=== PATIENT | female | born 1980 | race Caucasian/White ===

== ENCOUNTER 2023-03-05 10:16 | Emergency (ER) | payer OTHER, SELFPAY ==
[2023-03-05 10:36] VITALS: BP 178/104; PULSE 98; RESP 16; TEMP 36.6; O2SAT 98; BMI 37.0
[2023-03-05 11:15] LABS: Basophils Percent Auto 0.6 % (0.2-2.0); Eosinophils Percent Auto 0.1 % (0.9-7.0); Hematocrit 41.3 % (36.0-48.0); Hemoglobin 13.6 g/dL (12.0-16.0); Immature Granulocytes Abs Auto 0.01 10^3/uL (0.00-0.03); Immature Granulocytes Pct Auto 0.1 % (0.0-0.5); Lymphocytes Absolute Auto 2.4 10^3/uL (1.2-3.8); Lymphocytes Percent Auto 35.3 % (20.5-60.0); Mean Corpuscular HGB Conc 32.9 g/dL (29.9-35.2); Mean Corpuscular Hemoglobin 29.6 pg (26.7-34.0); Monocytes Absolute Auto 0.6 10^3/uL (0.3-0.8); Monocytes Percent Auto 9.1 % (1.7-12.0); Neutrophils Absolute Auto 3.7 10^3/uL (1.4-6.5); Neutrophils Percent Auto 54.8 % (43.0-75.0); Platelet Count 202 10^3/uL (150-450); Red Blood Count 4.59 10^6/uL (4.20-5.40); Red Cell Distribution Width 13.6 % (11.0-15.0); White Blood Count 6.7 10^3/uL (4.0-11.0)
[2023-03-05 11:20] VITALS: BP 160/102
[2023-03-05 11:55] LABS: HCG Qualitative NEGATIVE (NEGATIVE)
[2023-03-05 12:11] LABS: Alanine Aminotransferase 80 U/L (14-59); Albumin Globulin Ratio 1.2; Albumin Level 4.2 g/dL (3.4-5.0); Alkaline Phosphatase 68 U/L (46-116); Anion Gap 12.6; Aspartate Amino Transferase 49 U/L (15-37); BUN Creatinine Ratio 22.5; Bilirubin Total 0.6 mg/dL (0.2-1.0); Calcium 9.1 mg/dL (8.5-10.1); Carbon Dioxide 27.3 mmol/L (21.0-32.0); Chloride 106 mmol/L (98-107); Estimated GFR (African America >60 (>=60); Estimated GFR (Non-African Ame >60 (>=60); Globulin 3.6 g/dL; Glucose 93 mg/dL (74-106); Potassium 3.9 mmol/L (3.5-5.1); Sodium 142 mmol/L (136-145); Total Protein 7.8 g/dL (6.4-8.2); Troponin I High Sensitivity 4.1 pg/mL (4.0-51.3)
--- NOTE | 2023-03-05 12:13 | ED_ITS ---
HPI - Anxiety General Chief Complaint: Anxiety Stated Complaint: HIGH BLOOD PRESSURE Time Seen by Provider: 03/05/23 10:45 Source: patient Mode of arrival: walk-in History of Present Illness HPI narrative: Patient presenting to us after she was sent to us by the primary care doctor for her blood pressure that was found to be elevated, the patient had no complaints that was active as she had a history of anxiety recently although she does not take any medication but she mentioned that her daughter has been anxious and she has been anxious because of that She denies any chest pain headache although she does get headache very frequent over the week No blurry vision or double vision but she mentioned seeing floaters sometimes although she does not have any complaint at the moment The patient has not been diagnosed with hypertension before except when she was 9 years ago Related Data Previous Rx's Medication Instructions Recorded amlodipine 5 mg tablet 5 mg PO DAILY #14 tabs 03/05/23 Allergies Allergy/AdvReac Type Severity Reaction Status Date / Time Penicillins Allergy Severe Verified 03/05/23 10:35 Review of Systems ROS Status of ROS 10 or more systems reviewed and unremarkable except as noted in history and below Exam Narrative Exam Narrative: Nurses notes and vital signs reviewed and patient is not hypoxic. General: Well-appearing and in no apparent distress. Skin: Warm, dry, no pallor noted. No rash. Head: Normocephalic, atraumatic. Neck: Supple, non-tender. Eye: Pupils are equal, round and EOMI. No scleral icterus. Ears, Nose, Mouth, and Throat: TM are clear, no nasal mucosal hypertrophy. Oral mucosa is moist, no posterior oropharynx erythema, uvula is mid-line Cardiovascular: Regular Rate and Rhythm without murmur, gallop or rub. Respiratory: No accessory muscle use or respiratory distress. Lungs are clear to auscultation, no wheezing, rales or rhonchi Chest Wall: no tenderness Back: No midline thoracic or lumbar vertebral tenderness. No CVA tenderness Musculoskeletal: normal ROM, no calf or popliteal tenderness, no lower extremity edema/swelling GI: Abdomen is soft, non-distended. Normal bowel sounds. No masses appreciated. No tenderness to palpation. No rebound, guarding, or rigidity noted. Neurological: A&O x4. No cranial nerve dysfunction observed. No truncal milton randa. Moves all extremities. Sensation intact. Psychiatric: Cooperative and interactive. Normal mood and affect. Constitutional Vital Signs, click to edit/add: Last Vital Signs Temp 97.8 F 03/05/23 10:36 Pulse 98 H 03/05/23 10:36 Resp 16 03/05/23 10:36 BP 160/102 H 03/05/23 11:20 Pulse Ox 98 03/05/23 10:36 O2 Del Method Room Air 03/05/23 10:45 Course Vital Signs Vital signs: Vital Signs Temperature 97.8 F 03/05/23 10:36 Pulse Rate 98 H 03/05/23 10:36 Respiratory Rate 16 03/05/23 10:36 Blood Pressure 178/104 H 03/05/23 10:36 Pulse Oximetry 98 03/05/23 10:36 Oxygen Delivery Method Room Air 03/05/23 10:36 Temperature 97.8 F 03/05/23 10:36 Pulse Rate 98 H 03/05/23 10:36 Respiratory Rate 16 03/05/23 10:36 Blood Pressure 160/102 H 03/05/23 11:20 Pulse Oximetry 98 03/05/23 10:36 Oxygen Delivery Method Room Air 03/05/23 10:45 MDM - Anxiety MDM Narrative Medical decision making narrative: The patient CBC and chemistry showed no acute significant pathology she did have some liver enzyme elevation that she mentioned that was a chronic The patient was started amlodipine 5 mg daily instructed to follow-up with her doctor within a week she also was already started on Vistaril by her primary care doctor The patient is to follow up with primary care physician in next 2-3 days or to return to the emergency department should any of the signs or symptoms worsen or new symptoms develop. The patient agrees with the following Diagnosis and Treatment plan and the patient will be discharged home. Lab Data Labs: Lab Results 03/05/23 Range/Units 11:05 WBC 6.7 (4.0-11.0) 10^3/uL RBC 4.59 (4.20-5.40) 10^6/uL Hgb 13.6 (12.0-16.0) g/dL Hct 41.3 (36.0-48.0) % MCV 90.0 (81.0-99.0) fL MCH 29.6 (26.7-34.0) pg MCHC 32.9 (29.9-35.2) g/dL RDW 13.6 (11.0-15.0) % Plt Count 202 (150-450) 10^3/uL MPV 13.0 (9.5-13.5) fL Neut % (Auto) 54.8 (43.0-75.0) % Lymph % (Auto) 35.3 (20.5-60.0) % [place] % (Auto) 9.1 (1.7-12.0) % Eos % (Auto) 0.1 L (0.9-7.0) % Baso % (Auto) 0.6 (0.2-2.0) % Neut # (Auto) 3.7 (1.4-6.5) 10^3/uL Lymph # (Auto) 2.4 (1.2-3.8) 10^3/uL [place] # (Auto) 0.6 (0.3-0.8) 10^3/uL Eos # (Auto) 0.0 (0.0-0.7) 10^3/uL Baso # (Auto) 0.0 (0.0-0.1) 10^3/uL Abs Immat Gran (auto) 0.01 (0.00-0.03) 10^3/uL Imm/Tot Granulo (auto) 0.1 (0.0-0.5) % Sodium 142 (136-145) mmol/L Potassium 3.9 (3.5-5.1) mmol/L Chloride 106 (98-107) mmol/L Carbon Dioxide 27.3 (21.0-32.0) mmol/L Anion Gap 12.6 BUN 20.0 H (7.0-18.0) mg/dL Creatinine 0.89 (0.55-1.02) mg/dL Est GFR ( Amer) >60 (>=60) Est GFR (Non-Af Amer) >60 (>=60) BUN/Creatinine Ratio 22.5 Glucose 93 (74-106) mg/dL Calcium 9.1 (8.5-10.1) mg/dL Total Bilirubin 0.6 (0.2-1.0) mg/dL AST 49 H (15-37) U/L ALT 80 H (14-59) U/L Alkaline Phosphatase 68 (46-116) U/L Troponin I High Sens 4.1 (4.0-51.3) pg/mL Total Protein 7.8 (6.4-8.2) g/dL Albumin 4.2 (3.4-5.0) g/dL Globulin 3.6 g/dL Albumin/Globulin Ratio 1.2 Serum HCG, Qual Negative (NEGATIVE) Discharge Plan Discharge Chief Complaint: Anxiety Clinical Impression: HTN (hypertension) Patient Disposition: Home, Self-Care Time of Disposition Decision: 12:19 Condition: Good Prescriptions / Home Meds: New amlodipine 5 mg tablet 5 mg PO DAILY Qty: 14 0RF Instructions: Hypertension (ED) Stand Alone Forms: Portal Instructions Referrals: BRENDA ROBLES [Primary Care Provider] - 1 week
== END 2023-03-05 12:35 | disposition home or self-care (01) ==
PROVIDERS: Emergency Provider Emergency Medicine; PCP Family Medicine
DX: I10 Essential (primary) hypertension (principal)
CPT/HCPCS: 36415; 80053; 84484; 84703; 85025; 99283